=== PATIENT | female | born 1945 | race Caucasian/White ===

== ENCOUNTER 2019-08-31 23:30 | Emergency (ER) | payer OTHER, MEDICAID ==
[~2019-08-31] VITALS: Ht 160 cm; Wt 79.4 kg
[2019-08-31 23:35] VITALS: BP_SYST 125
[2019-09-01 02:30] LABS: BASOPHILS # (AUTO) 0.1 K/uL (0.0-0.2); BASOPHILS % (AUTO) 0.8 % (0.0-2.0); EOSINOPHILS % (AUTO) 0.2 % (0.0-4.0); HEMATOCRIT 36.2 % (36-48); HEMOGLOBIN 11.7 g/dL (12.0-16.0); LYMPHOCYTES # (AUTO) 2.1 K/uL (1.0-5.5); LYMPHOCYTES % (AUTO) 32.5 % (20.5-51.5); MEAN CORPUSCULAR HEMOGLOBIN 27 pg (27-31); MEAN CORPUSCULAR HGB CONC 32 % (32-36); MEAN CORPUSCULAR VOLUME 84 fL (79.0-98.0); MONOCYTES # (AUTO) 0.4 K/uL (0.0-1.0); NEUTROPHILS # (AUTO) 3.8 K/uL (1.8-7.7); NEUTROPHILS % (AUTO) 59.5 % (40.0-70.0); PLATELET COUNT (AUTO) 137 K/uL (130-430); RED BLOOD CELL COUNT(AUTO) 4.33 MIL/uL (4.2-6.2); RED CELL DISTRIBUTION WIDTH 13.9 % (9.0-15.0); WHITE BLOOD COUNT (AUTO) 6.5 K/uL (4.8-10.8)
[2019-09-01 02:32] LABS: ANION GAP 7 (5-15); CALCIUM 8.8 mg/dL (8.4-11.0); CHLORIDE 104 mmol/L (98-107); CREATININE 0.51 mg/dL (0.55-1.30); GLUCOSE 137 mg/dL (70-99); POTASSIUM 4.1 mmol/L (3.5-5.1); SODIUM SERUM 139 mmol/L (136-145); UREA NITROGEN, BLOOD 18 mg/dL (8-21)
[2019-09-01 02:42] LABS: ALANINE AMINOTRANSFERASE 35 U/L (12-78); ASPARTATE AMINOTRANSFERASE 34 U/L (10-37); FREE T4 (FREE THYROXINE) 1.1 ng/dl (0.8-1.5); THYROID STIMULATING HORMONE 3.53 uIu/mL (0.36-3.74); TOTAL BILIRUBIN 0.4 mg/dL (0.0-1.0)
[2019-09-01 03:08] LABS: ALCOHOL, BLOOD < 3 mg/dL (<10)
[2019-09-01] MEDS ORDERED: ACET-2165 PO (05:06)
[2019-09-01] MEDS ORDERED: MOM PO (05:06)
[2019-09-01] MEDS ORDERED: NEU300 PO (05:06)
[2019-09-01] MEDS ORDERED: NITSL SL (05:06)
[2019-09-01] MEDS ORDERED: TRAM50TA2 PO (05:06)
[2019-09-01] MEDS ORDERED: METO50TA7 PO (05:06)
[2019-09-01] MEDS ORDERED: LISI-600 PO (05:06)
[2019-09-01] MEDS ORDERED: HYDR-4039 PO (05:06)
[2019-09-01] MEDS ORDERED: GLU500 PO (05:06)
[2019-09-01 12:30] VITALS: BP_SYST 169
== END 2019-09-01 12:30 | disposition short-term general hospital (02) ==
LOC: SED 23:30
DX: K94.23 Gastrostomy malfunction (principal); Z79.899 Other long term (current) drug therapy; Z88.0 Allergy status to penicillin; Z86.79 Personal history of other diseases of the circulatory system
CPT/HCPCS: 36415; 80053; 82962; 84439; 84443; 85025; 99285; G0482